=== PATIENT | male | born 1940 | race Caucasian/White ===

== ENCOUNTER 2017-02-24 20:10 | Outpatient (CLI) | payer MEDICARE, OTHER ==
[~2017-02-24 20:10] MED LIST: AGM875T PO; AMPH15CA PO; ASPI-587 PO; AVOD0.5CAP PO; CITA10TA PO; LISI20TA PO; OMEP20CA12 PO; TERA10CA PO
== END 2017-02-25 06:55 | disposition home or self-care (01) ==
LOC: SLEEP 20:10
PROVIDERS: ATTEND Family Medicine
DX: G47.33 Obstructive sleep apnea (adult) (pediatric) (principal)
CPT/HCPCS: 95811

== ENCOUNTER 2017-05-30 07:50 | Emergency (ER) | payer MEDICARE, OTHER ==
[~2017-05-30] VITALS: Ht 167.6 cm; Wt 95.3 kg
--- OUTSIDE RECORDS SUMMARY | 2017-05-30 07:56 | XMS REPORT | Continuity of Care Document ---
Author Author [facility] Organization [facility] Address Unknown Phone Unavailable Allergies Active Description Code Type Severity Reaction Onset Reported/Identified Relationship to Patient Clinical Status Yes No Known Drug Allergies [id number] Drug Allergy Unknown N/A 10/12/2014 Medications There is no data. Problems Date Dx Coded Attending Type Code Diagnosis Diagnosed By 10/12/2014 HECTOR GALLEGO APRN Ot 873.43 OPEN WOUND OF LIP 10/12/2014 HECTOR GALLEGO APRN Ot E000.8 OTHER EXTERNAL CAUSE STATUS 10/12/2014 HECTOR GALLEGO APRN Ot E880.9 FALL ON STAIR/STEP NEC 10/12/2014 HECTRO GALLEGO APRN Ot V06.1 [id number], COMBINED [ 10/18/2014 LANRE LARSEN, RADHA Bravo Ot V58.32 ENCOUNTER FOR REMOVAL OF SUTURES 11/09/2014 HECTOR GALLEGO APRN Ot 873.43 11/09/2014 HECTOR GALLEGO APRN Ot E000.8 11/09/2014 HECTOR GALLEGO APRN Ot E880.9 11/09/2014 HECTOR GALLEGO APRN Ot V06.1 11/13/2014 ISABEL MCCLENDON MD Ot 435.9 11/13/2014 ISABEL MCCLENDON MD Ot 780.2 11/13/2014 ISABEL MCCLENDON MD Ot 784.51 02/20/2017 ISABEL MCCLENDON MD Ot 435.9 TRANS CEREB ISCHEMIA NOS 02/20/2017 ISABEL MCCLENDON MD Ot 780.2 SYNCOPE AND COLLAPSE 02/20/2017 ISABEL MCCLENDON MD Ot 784.51 DYSARTHRIA 02/25/2017 ISABEL MCCLENDON MD Ot G47.33 OBSTRUCTIVE SLEEP APNEA (ADULT) (PEDIATR 03/02/2017 ISABEL MCCLENDON MD Ot G47.33 OBSTRUCTIVE SLEEP APNEA (ADULT) (PEDIATR Procedures There is no data. Results There is no data. Encounters ACCT No. Visit Date/Time Discharge Status Pt. Type Provider Facility Loc./Unit Complaint [id number] 2017 20:10:00 02/25/2017 06:55:00 DIS Outpatient ISABEL MCCLENDON MD [facility] SLEEP G47.33 ALYSSA [id number] 10/21/2014 09:41:00 10/21/2014 23:59:59 CLS Outpatient ISABEL MCCLENDON MD [facility] RAD TIA SYNCOPE DYSARTHRIA [id number] 10/18/2014 10:43:00 10/18/2014 10:51:00 DIS Emergency RADHA DE DIOS MD [facility] ER SUTURE REMOVAL [id number] 10/12/2014 13:11:00 10/12/2014 14:51:00 DIS Emergency HECTOR GALLEGO APRN [facility] ER FALL/FACIAL INJURY
[2017-05-30] MEDS ORDERED: AMOX-358 PO (09:16)
[2017-05-30] MEDS ORDERED: ACHD5005 PO (09:16)
--- NOTE | 2017-05-30 09:20 | ED EENT ---
History of Present Illness General Chief Complaint: Dental Problems/Pain Stated Complaint: INFECTION IN JAW Nursing Triage Note: PT CO OF DENTAL PAIN R JAW AREA STATES SCHEDULED TO HAVE DENTIST APPT NEXT WEEK. PT STATES HAS FEVER AND PAIN History of Present Illness Date Seen by Provider: May 30, 2017 Time Seen by Provider: 09:07 Initial Comments Here with report of swelling to the right side of the face and tooth abscess problem. He is not currently on antibiotics. He has appointment with his dentist next week. Denies fever or chills. Denies breathing problems or vomiting. Timing/Duration: gradual, last week Severity: moderate Location: mouth, facial Prearrival Treatment: over the counter meds Associated Symptoms: No cough, No drooling, facial pain/swelling, No fever, tooth pain Allergies and Home Medications Allergies Coded Allergies: No Known Drug Allergies (Unverified , 10/12/14) Home Medications Amoxicillin/Potassium Clav 1 Each Tablet, 1 EACH PO BID Prescribed by: SAYRA PÉREZ on 05/30/17915 Amphet Asp/Amphet/D-Amphet 15 Mg Cap.sr.24h, 15 MG PO DAILY, (Reported) Aspirin 81 Mg Tablet.dr, 81 MG PO DAILY, (Reported) Citalopram Hydrobromide 10 Mg Tablet, 10 MG PO DAILY, (Reported) Dutasteride 0.5 Mg Capsule, 0.5 MG PO DAILY, (Reported) Hydrocodone Bit/Acetaminophen 1 Tab Tab, 1 EACH PO Q6H PRN for PAIN-MODERATE Prescribed by: SAYRA PÉREZ on 05/30/17915 Lisinopril 20 Mg Tablet, 20 MG PO HS PRN for BLOOD PRESSURE, (Reported) Omeprazole 20 Mg Capsule.dr, 20 MG PO DAILY, (Reported) Terazosin Hcl 10 Mg Capsule, 10 MG PO DAILY, (Reported) Review of Systems Constitutional: see HPI, No chills, No fever Mouth: see HPI Throat: no symptoms reported Respiratory: no symptoms reported Cardiovascular: no symptoms reported Gastrointestinal: no symptoms reported Past Wkrfxqd-Jcskyn-Ahchpq Hx Patient Social History Alcohol Use: Denies Use Recreational Drug Use: No Smoking Status: Never a Smoker Recent Foreign Travel: No Contact w/Someone Who Travel: No Recent Infectious Disease Expo: No Immunizations Up To Date Tetanus Booster (TDap): More than 5yrs Seasonal Allergies Seasonal Allergies: No Surgeries History of Surgeries: Yes Surgeries: Appendectomy Respiratory History of Respiratory Disorde: Yes Respiratory Disorders: Sleep Apnea Cardiovascular History of Cardiac Disorders: Yes Cardiac Disorders: Hypertension Genitourinary History of Genitourinary Disor: Yes Genitourinary Disorders: Benign Prostatic Hyperpl Reviewed Nursing Assessment Reviewed/Agree w Nursing PMH: Yes Family Medical History Significant Family History: No Pertinent Family Hx Physical Exam Vital Signs Vital Signs - First Documented 05/30/17 08:16 Temp 98.2 Pulse 89 Resp 18 B/P (MAP) 135/93 (107) Pulse Ox 95 General Appearance: WD/WN, no apparent distress Nose: normal inspection Mouth/Throat: pharynx normal, maxillary swelling, No tongue swollen, No trismus , No voice changes, other (swelling noted to the right upper jaw posterior and includes the area of the cheek. There is purulent drainage from abscess near number 2 tooth) Neck: full range of motion, supple Cardiovascular: regular rate, rhythm, no murmur Respiratory: lungs clear, normal breath sounds Neurologic/Psychiatric: alert, oriented x 3 Skin: normal color, warm/dry Progress/Results/Core Measures Results/Orders Vital Signs/I&O Vital Sign - Last 12Hours 05/30/17 08:16 Temp 98.2 Pulse 89 Resp 18 B/P (MAP) 135/93 (107) Pulse Ox 95 Blood Pressure Mean: 107 Progress Note : Progress Note Seen and evaluated. Discharged home with return precautions. Patient verbalize understanding instructions and agreement with plan. Departure Impression Impression: Primary Impression: Abscess, dental Disposition: 01 HOME, SELF-CARE Condition: Stable Departure-Patient Inst. Decision time for Depature: 09:19 Referrals: ISABEL MCCLENDON MD (PCP/Family) Primary Care Physician Patient Instructions: Tooth Abscess (DC) Add. Discharge Instructions: All discharge instructions reviewed with patient and/or family. Voiced understanding. Take medications as directed. Follow-up with the dentist next week for recheck and further evaluation as scheduled. Return for worse pain, or swelling, fever , vomiting, weakness, breathing problems or other concerns as needed. You may take Tylenol/acetaminophen 1000 mg every 6 hours as needed for pain but do not take that with the prescribed pain medicine as it also has acetaminophen in it. You may take one or the other every 6 hours but not both. Scripts Hydrocodone Bit/Acetaminophen (Hydrocodone/Acetaminophen 5/325mg Tablet) 1 Tab Tab 1 EACH PO Q6H Y for PAIN-MODERATE, #12 TAB 0 Refills Prov: SAYRA PÉREZ MD 05/30/17 Amoxicillin/Potassium Clav (Augmentin 875-125 Tablet) 1 Each Tablet 1 EACH PO BID, #20 TAB 0 Refills Prov: SAYRA PÉREZ MD 05/30/17 SAYRA PÉREZ MD May 30, 2017 09:20
[2017-05-30 09:26] VITALS: BP 135/93
== END 2017-05-30 09:26 | disposition home or self-care (01) ==
LOC: EDUNIT# 07:50 → ER 07:52
DX: K04.7 Periapical abscess without sinus (principal); G47.30 Sleep apnea, unspecified; I10 Essential (primary) hypertension; Z79.82 Long term (current) use of aspirin; Z90.49 Acquired absence of other specified parts of digestive tract
CPT/HCPCS: 99282

== ENCOUNTER 2018-05-13 11:03 | Emergency (ER) | payer MEDICARE, OTHER ==
[~2018-05-13 11:03] MED LIST changes: +ACHD5005 PO; +AMOX-358 PO
--- OUTSIDE RECORDS SUMMARY | 2018-05-13 11:07 | XMS REPORT | Continuity of Care Document ---
Author Author [facility] Organization [facility] Address Unknown Phone Unavailable Allergies Active Description Code Type Severity Reaction Onset Reported/Identified Relationship to Patient Clinical Status Yes PROTONIX SEVERE OTHER Yes No Known Drug Allergies [id number] Drug Allergy Unknown N/A 10/12/2014 Medications There is no data. Problems Date Dx Coded Attending Type Code Diagnosis Diagnosed By 10/12/2014 HECTOR GALLEGO APRN Ot 873.43 OPEN WOUND OF LIP 10/12/2014 HECTOR GALLEGO APRN Ot E000.8 OTHER EXTERNAL CAUSE STATUS 10/12/2014 HECTOR GALLEGO APRN Ot E880.9 FALL ON STAIR/STEP NEC 10/12/2014 HECTOR GALLEGO APRN Ot V06.1 [id number], COMBINED [ 10/18/2014 LANRE LARSEN, RADHA Bravo Ot V58.32 ENCOUNTER FOR REMOVAL OF SUTURES 11/09/2014 HECTOR GALLEGO APRN Ot 873.43 11/09/2014 HECTOR GALLEGO APRN Ot E000.8 11/09/2014 HECTOR GALLEGO APRN Ot E880.9 11/09/2014 HECTOR GALLEGO APRN Ot V06.1 11/13/2014 HAKAN LARSEN, ISABEL Thakur Ot 435.9 11/13/2014 HAKAN LARSEN, ISABEL Thakur Ot 780.2 11/13/2014 ISABEL MCCLENDON MD Ot 784.51 02/20/2017 HAKAN LARSEN, ISABEL Thakur Ot 435.9 TRANS CEREB ISCHEMIA NOS 02/20/2017 HAKAN LARSEN, ISABEL Thakur Ot 780.2 SYNCOPE AND COLLAPSE 02/20/2017 HAKAN LARSEN, ISABEL Thakur Ot 784.51 DYSARTHRIA 02/25/2017 HAKAN LARSEN, ISABEL Thakur Ot G47.33 OBSTRUCTIVE SLEEP APNEA (ADULT) (PEDIATR 03/02/2017 HAKAN LARSEN, ISABEL Thakur Ot G47.33 OBSTRUCTIVE SLEEP APNEA (ADULT) (PEDIATR 05/30/2017 SAYRA PÉREZ MD Ot G47.30 SLEEP APNEA, UNSPECIFIED 05/30/2017 SAYRA PÉREZ MD Ot I10 ESSENTIAL (PRIMARY) HYPERTENSION 05/30/2017 SAYRA PÉREZ MD Ot K04.7 PERIAPICAL ABSCESS WITHOUT SINUS 05/30/2017 SAYRA PÉREZ MD Ot K08.89 OTHER SPECIFIED DISORDERS OF TEETH AND S 05/30/2017 SAYRA PÉREZ MD Ot Z79.82 GROUP HOME (CURRENT) USE OF ASPIRIN 05/30/2017 SAYRA PÉREZ MD Ot Z90.49 ACQUIRED ABSENCE OF OTHER SPECIFIED PART 05/31/2017 ISABEL MCCLENDON W 401.0 MALIGNANT ESSENTIAL HYPERTENSION 05/31/2017 MCCLENDONISABEL PRICE W I10 ESSENTIAL (PRIMARY) HYPERTENSION 05/31/2017 MCCLENDON, ISABEL W 401.0 MALIGNANT ESSENTIAL HYPERTENSION 05/31/2017 HAKAN ISABEL W I10 ESSENTIAL (PRIMARY) HYPERTENSION 05/31/2017 MCCLENDONKIET PRICEHEL W 401.0 MALIGNANT ESSENTIAL HYPERTENSION 05/31/2017 ISABEL MCCLENDON W I10 ESSENTIAL (PRIMARY) HYPERTENSION 06/04/2017 SAYRA PÉREZ MD Ot G47.30 SLEEP APNEA, UNSPECIFIED 06/04/2017 SAYRA PÉREZ MD Ot I10 ESSENTIAL (PRIMARY) HYPERTENSION 06/04/2017 SAYRA PÉREZ MD Ot K04.7 PERIAPICAL ABSCESS WITHOUT SINUS 06/04/2017 SAYRA PÉREZ MD Ot K08.89 OTHER SPECIFIED DISORDERS OF TEETH AND S 06/04/2017 SAYRA PÉREZ MD Ot Z79.82 TELEPHONE STERILIZER (CURRENT) USE OF ASPIRIN 06/04/2017 SAYRA PÉREZ MD Ot Z90.49 ACQUIRED ABSENCE OF OTHER SPECIFIED PART 01/16/2018 ISABEL MCCLENDON W 401.0 MALIGNANT ESSENTIAL HYPERTENSION 01/16/2018 KIET MCCLENDONHEL W I10 ESSENTIAL (PRIMARY) HYPERTENSION 01/16/2018 MCCLENDON, ISABEL W 401.0 MALIGNANT ESSENTIAL HYPERTENSION 01/16/2018 MCCLENDON, ISABEL W I10 ESSENTIAL (PRIMARY) HYPERTENSION 01/16/2018 MCCLENDON, ISABEL W 401.0 MALIGNANT ESSENTIAL HYPERTENSION 01/16/2018 MCCLENDON, ISABEL W I10 ESSENTIAL (PRIMARY) HYPERTENSION 01/17/2018 ISABEL MCCLENDON W 782.2 LOCALIZED SUPERFICIAL SWELLING, MASS, OR LUMP 01/17/2018 ISABEL MCCLENDON W R22.0 LOCALIZED SWELLING, MASS AND LUMP, HEAD 01/17/2018 ISABEL MCCLENDON W 782.2 LOCALIZED SUPERFICIAL SWELLING, MASS, OR LUMP 01/17/2018 ISABEL MCCLENDON R22.0 LOCALIZED SWELLING, MASS AND LUMP, HEAD Procedures There is no data. Results Test Result Range PSA Yearly Screen - 04/11/16 10:45 PSA TOTAL 2.4 ng/mL 0.0-4.0 Lipid Panel - 05/31/17 11:27 C/HDL 2.6 3.7-6.7 Cholesterol 108 mg/dL 100-240 HDL 42 mg/dL 30-85 LDL-Calculated 58 mg/dL 0-100 Trig 39 mg/dL 35-160 VLDL 8 mg/dL 0-42 BMP - 01/16/18 09:35 Anion Gap 17 6-14 BUN 16 mg/dL 5-25 Calcium 9.1 mg/dL 8.3-10.4 Chloride 102 mmol/L 95-114 CO2 25 mEq/L 22-33 Creat 1.38 mg/dL 0.50-1.50 eGFR 50 mL/min/1.73m2 >59 Glucose 182 mg/dL 70-110 Osmo 292 280-295 Potassium 4.5 mmol/L 3.5-5.3 Sodium 139 mmol/L 134-148 Creatinine - 01/30/18 15:56 Creat 1.24 mg/dL 0.50-1.50 eGFR 57 mL/min/1.73m2 >59 Encounters ACCT No. Visit Date/Time Discharge Status Pt. Type Provider Facility Loc./Unit Complaint [id number] 05/30/2017 07:52:00 05/30/2017 09:26:00 DIS Emergency ELISA LARSEN, SAYRA Jorge [facility] ER INFECTION IN JAW [id number] 2017 20:10:00 02/25/2017 06:55:00 DIS Outpatient ISABEL MCCLENDON MD [facility] SLEEP G47.33 ALYSSA [id number] 10/21/2014 09:41:00 10/21/2014 23:59:59 CLS Outpatient ISABEL MCCLENDON MD [facility] RAD TIA SYNCOPE DYSARTHRIA [id number] 10/18/2014 10:43:00 10/18/2014 10:51:00 DIS Emergency LANRE LARSEN, RADHA Bravo [facility] ER SUTURE REMOVAL [id number] 10/12/2014 13:11:00 10/12/2014 14:51:00 DIS Emergency HECTOR GALLEGO APRN [facility] ER FALL/FACIAL INJURY [id number] 01/16/2018 13:06:00 Document Registration [id number] 01/31/2018 09:08:00 01/31/2018 23:59:00 DIS Outpatient Osvaldo Arceo [id number] 01/30/2018 15:48:00 01/30/2018 23:59:00 DIS Outpatient Osvaldo Arceo [id number] 01/17/2018 13:08:00 01/17/2018 23:59:00 DIS Outpatient ISABEL MCCLENDON [id number] 01/16/2018 13:06:00 01/16/2018 23:59:00 DIS Outpatient ISABEL MCCLENDON [id number] 05/31/2017 12:53:00 05/31/2017 23:59:00 DIS Outpatient ISABEL MCCLENDON [id number] 04/11/2016 11:26:00 04/11/2016 23:59:00 DIS Outpatient ISABEL MCCLENDON
--- NOTE | 2018-05-13 11:40 | NUR ---
ATTEMPTED TO CALL PT BACK TO ROOM, PT NOT IN WAITING ROOM ATT. WILL TRY TO CALL BACK IN A FEW MINUTES.
--- NOTE | 2018-05-13 11:59 | NUR ---
ATTEMPTED TO CALL PT BACK FOR THE SECOND TIME. PT NOT IN LOBBY OR OUTSIDE. PT LWBS.
== END 2018-05-13 11:58 | disposition left against medical advice (07) ==
LOC: EDUNIT# 11:03 → ER 11:03
DX: R30.0 Dysuria (principal)

== ENCOUNTER 2019-01-12 05:03 | Emergency (ER) | payer MEDICARE, OTHER ==
[~2019-01-12] VITALS: Ht 168 cm; Wt 94.1 kg
[2019-01-12 05:33] LABS: BILIRUBIN,URINE NEGATIVE (NEGATIVE); CLARITY,URINE CLEAR; COLOR,URINE YELLOW; GLUCOSE, URINE (UA) NEGATIVE (NEGATIVE); KETONES,URINE NEGATIVE (NEGATIVE); LEUKOCYTE ESTERASE ,URINE NEGATIVE (NEGATIVE); NITRITE,URINE NEGATIVE (NEGATIVE); PH,URINE 5 (5-9); PROTEIN,URINE NEGATIVE (NEGATIVE); UROBILINOGEN,URINE NORMAL (NORMAL)
[2019-01-12] MEDS ORDERED: SULF1TAB35 PO (05:44)
[2019-01-12] MEDS ORDERED: TRIM/SULFAMETH 160/800 (SEPTRA DS) TAB PO ONE (05:45)
--- NOTE | 2019-01-12 05:45 | ED GU-Male ---
General Chief Complaint: - Urinary Stated Complaint: [facility] Nursing Triage Note: URINARY RETENTION Allergies and Home Medications Allergies Coded Allergies: No Known Drug Allergies (Unverified , 10/12/14) Home Medications Amoxicillin/Potassium Clav 1 Each Tablet, 1 EACH PO BID Prescribed by: SAYRA PRÉEZ on 05/30/17915 Amphet Asp/Amphet/D-Amphet 15 Mg Cap.sr.24h, 15 MG PO DAILY, (Reported) Aspirin 81 Mg Tablet.dr, 81 MG PO DAILY, (Reported) Citalopram Hydrobromide 10 Mg Tablet, 10 MG PO DAILY, (Reported) Dutasteride 0.5 Mg Capsule, 0.5 MG PO DAILY, (Reported) Hydrocodone Bit/Acetaminophen 1 Tab Tab, 1 EACH PO Q6H PRN for PAIN-MODERATE Prescribed by: SAYRA PÉREZ on 05/30/17915 Lisinopril 20 Mg Tablet, 20 MG PO HS PRN for BLOOD PRESSURE, (Reported) Omeprazole 20 Mg Capsule.dr, 20 MG PO DAILY, (Reported) Terazosin Hcl 10 Mg Capsule, 10 MG PO DAILY, (Reported) Past Zezxrjv-Mjpcxq-Iadkgl Hx Patient Social History Alcohol Use: Denies Use Recreational Drug Use: No Smoking Status: Never a Smoker 2nd Hand Smoke Exposure: No Recent Foreign Travel: No Contact w/Someone Who Travel: No Recent Infectious Disease Expo: No Recent Hopitalizations: No Physical Abuse: No Sexual Abuse: No Mistreated: No Fear: No Immunizations Up To Date Tetanus Booster (TDap): Unknown Seasonal Allergies Seasonal Allergies: No Past Medical History Surgeries: No Appendectomy Respiratory: No Sleep Apnea Cardiac: Yes Hypertension Neurological: No Genitourinary: Yes (URINARY RETENTION) Prostate Problems Gastrointestinal: Yes Gastroesophageal Reflux Musculoskeletal: No Endocrine: No HEENT: No Cancer: No Psychosocial: No Integumentary: No Blood Disorders: No Family Medical History No Pertinent Family Hx Physical Exam Vital Signs Vital Signs - First Documented 01/12/19 05:07 Temp 36.1 Pulse 112 Resp 18 B/P (MAP) 136/92 (107) Pulse Ox 96 O2 Delivery Room Air Capillary Refill : Less Than 3 Seconds Height, Weight, BMI Height: 5'6.00" Weight: 210lbs. oz. 95.851604pw; 33.00 BMI Method:Stated Progress/Results/Core Measures Suspected Sepsis Recent Fever Within 48 Hours: No Infection Criteria Present: None New/Unexplained Altered Menta: No Sepsis Screen: No Definite Risk SIRS Temperature: Pulse: 112 Respiratory Rate: 18 Blood Pressure 136 /92 Mean: 107 Results/Orders Lab Results Laboratory Tests Test 01/12/19 05:20 Range/Units My Orders Orders - JOSÉ ANTONIO GREENE DO Catheter(Urinary) Insert & Ass 03,15 (01/12/19 05:14) Ua Culture If Indicated (01/12/19 05:14) Sulfamethoxazole/Trimet Ds Tab (Bactrim (01/12/19 05:45) Vital Signs/I&O 01/12/19 05:07 Temp 36.1 Pulse 112 Resp 18 B/P (MAP) 136/92 (107) Pulse Ox 96 O2 Delivery Room Air Capillary Refill : Less Than 3 Seconds Blood Pressure Mean: 107 Progress Note : Progress Note ENRIQUEZ CATHETER PLACED, WITH IMMEDIATE RETURN OF 500 ML CLEAR URINE Departure Impression Primary Impression: Urinary retention Additional Impression: History of BPH Disposition: 01 HOME, SELF-CARE Condition: Improved Departure-Patient Inst. Referrals: ISABEL MCCLENDON MD (PCP/Family) Primary Care Physician Patient Instructions: Benign Prostatic Hyperplasia (Enlarged Prostate) (DC), Enriquez Catheter, Male, Urinary Retention (DC) Add. Discharge Instructions: CONTINUE YOUR REGULAR MEDICATIONS PRESCRIBED FOLLOW UP WITH YOUR UROLOGIST THIS WEEK FOR FURTHER CARE All discharge instructions reviewed with patient and/or family. Voiced understanding. Scripts Sulfamethoxazole/Trimethoprim (Bactrim Ds Tablet) 1 Each Tablet 1 EACH PO BID, #20 TAB Prov: JOSÉ ANTONIO GREENE DO 01/12/19 JOSÉ ANTONIO GREENE DO Jan 12, 2019 05:45
[2019-01-12 05:54] VITALS: BP 136/92
[2019-01-12 05:55] LABS: BACTERIA,URINE TRACE /HPF; SQUAMOUS EPITHELIAL CELL,UR RARE /HPF
== END 2019-01-12 05:51 | disposition home or self-care (01) ==
LOC: EDUNIT# 05:03 → ER 05:05
DX: R33.9 Retention of urine, unspecified (principal); I10 Essential (primary) hypertension; K21.9 Gastro-esophageal reflux disease without esophagitis; Z87.438 Personal history of other diseases of male genital organs; Z79.82 Long term (current) use of aspirin; Z90.49 Acquired absence of other specified parts of digestive tract
CPT/HCPCS: 51702; 81000

== ENCOUNTER 2019-04-10 11:14 | Outpatient (RCR) | payer MEDICARE, OTHER ==
[~2019-04-10 11:14] MED LIST changes: +SULF1TAB35 PO
== END 2019-04-10 11:58 | disposition home or self-care (01) ==
PROVIDERS: ATTEND Student in an Organized Health Care Education/Training Program
DX: R51 Headache (principal); R42 Dizziness and giddiness; I10 Essential (primary) hypertension; K21.9 Gastro-esophageal reflux disease without esophagitis

== ENCOUNTER → 2019-05-31 | Emergency (ER) | payer MEDICARE, OTHER ==
[~2019-05-31] VITALS: Ht 167.7 cm; Wt 93.4 kg
[~2019-05-31] MED LIST changes: +DOXY100T2 PO; +KETOROLAC 30 MG/ML VIAL IVP STA; +NS IV 500 ML 500 ML IV ONE; +ONDA4TAB11 PO; +ONDANSETRON 4 MG/2 ML (SDV) Z0FRAN IVP ONE; +TRM50T PO
[2019-05-31 09:52] VITALS: BP 145/84
--- NOTE | 2019-05-31 10:19 | ED GU-Male ---
General Chief Complaint: Male Reproductive Stated Complaint: TESTICLE PAIN/HAD PROSTATE SURGERY IN APR Nursing Triage Note: PATIENT REPORTS HAVING NORMAL URINATION ET NO PROBLEMS AT 0430. AWOKE AT 0730 TO PAIN IN RIGHT TESTICLE AND "SHAKING". PATIENT DENIES ANY SWELLING TO TESTICLES. PATIENT REPORTS HAVING PROSTATE SURGERY "SOMETIME IN APRIL." History of Present Illness Date Seen by Provider: May 31, 2019 Time Seen by Provider: 10:19 Initial Comments 79-year-old male presents with right testicle pain. Patient reports that around 4:30 get up to urinate and then about 7:30 awoke to pain in the right testicle" shaking" patient denies any swelling to the testicle. Patient's testicle is very tender to touch. Patient had a prostate surgery [facility] in April. Patient denies any fevers chills nausea or vomiting. He does not have any dysuria. Allergies and Home Medications Allergies Coded Allergies: No Known Drug Allergies (Unverified , 10/12/14) Home Medications Amoxicillin/Potassium Clav 1 Each Tablet, 1 EACH PO BID Prescribed by: SAYRA PÉREZ on 05/30/17915 Amphet Asp/Amphet/D-Amphet 15 Mg Cap.sr.24h, 15 MG PO DAILY, (Reported) Aspirin 81 Mg Tablet.dr, 81 MG PO DAILY, (Reported) Citalopram Hydrobromide 10 Mg Tablet, 10 MG PO DAILY, (Reported) Dutasteride 0.5 Mg Capsule, 0.5 MG PO DAILY, (Reported) Hydrocodone Bit/Acetaminophen 1 Tab Tab, 1 EACH PO Q6H PRN for PAIN-MODERATE Prescribed by: SAYRA PÉREZ on 05/30/17915 Lisinopril 20 Mg Tablet, 20 MG PO HS PRN for BLOOD PRESSURE, (Reported) Omeprazole 20 Mg Capsule.dr, 20 MG PO DAILY, (Reported) Sulfamethoxazole/Trimethoprim 1 Each Tablet, 1 EACH PO BID Prescribed by: JOSÉ ANTONIO GREENE on 01/12/19 0544 Terazosin Hcl 10 Mg Capsule, 10 MG PO DAILY, (Reported) Patient Home Medication List Home Medication List Reviewed: Yes Review of Systems Review of Systems Constitutional: chills; No fever EENTM: no symptoms reported Respiratory: no symptoms reported Gastrointestinal: No abdominal pain; nausea; No vomiting Genitourinary: see HPI Musculoskeletal: no symptoms reported Skin: no symptoms reported Past Stgngnq-Kdtupw-Poyrdc Hx Past Med/Social Hx: Reviewed Nursing Past Med/Soc Hx Patient Social History Alcohol Use: Denies Use Recreational Drug Use: No 2nd Hand Smoke Exposure: No Recent Foreign Travel: No Contact w/Someone Who Travel: No Recent Infectious Disease Expo: No Recent Hopitalizations: No Immunizations Up To Date Tetanus Booster (TDap): Unknown Date of Influenza Vaccine: Dec 31, 2018 Seasonal Allergies Seasonal Allergies: No Past Medical History Surgeries: Yes Appendectomy, Prostatectomy Respiratory: Yes Sleep Apnea Cardiac: Yes Hypertension Neurological: Yes Headaches /Migraines Genitourinary: Yes (URINARY RETENTION) Prostate Problems Gastrointestinal: Yes Gastroesophageal Reflux Musculoskeletal: No Endocrine: No HEENT: No Cancer: No Psychosocial: No Integumentary: No Blood Disorders: No Family Medical History No Pertinent Family Hx Physical Exam Vital Signs Vital Signs - First Documented 05/31/19 09:52 Temp 38.1 Pulse 98 Resp 20 B/P (MAP) 145/84 (104) Pulse Ox 98 O2 Delivery Room Air Capillary Refill : Less Than 3 Seconds Height, Weight, BMI Height: 5'6.00" Weight: 210lbs. oz. 95.277441lr; 33.00 BMI Method:Stated General Appearance: WD/WN Cardiovascular: normal peripheral pulses, regular rate, rhythm Respiratory: chest non-tender, lungs clear Gastrointestinal: non tender, soft Male: testicular tenderness (right testicle, patient however with bilateral cremaster reflexes intact. 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, no motor/sensory deficits, oriented x 3 Skin: normal color, warm/dry Progress/Results/Core Measures Suspected Sepsis Recent Fever Within 48 Hours: No Infection Criteria Present: None New/Unexplained Altered Menta: No Sepsis Screen: No Definite Risk SIRS Temperature: Pulse: 98 Respiratory Rate: 20 Blood Pressure 145 /84 Mean: 104 Results/Orders Lab Results Laboratory Tests Test 05/31/19 10:25 Range/Units Urine Color YELLOW Urine Clarity CLOUDY Urine pH 5.5 5-9 Urine Specific [place] 1.025 H 1.016-1.022 Urine Protein TRACE H NEGATIVE Urine Glucose (UA) NEGATIVE NEGATIVE Urine Ketones NEGATIVE NEGATIVE Urine Nitrite NEGATIVE NEGATIVE Urine Bilirubin NEGATIVE NEGATIVE Urine Urobilinogen 0.2 < = 1.0 MG/DL Urine Leukocyte Esterase 2+ H NEGATIVE Urine RBC (Auto) 1+ H NEGATIVE Urine RBC RARE /HPF Urine WBC >100 H /HPF Urine Crystals NONE /LPF Urine Bacteria MODERATE H /HPF Urine Casts NONE /LPF Urine Mucus MODERATE H /LPF Urine Culture Indicated YES My Orders Orders - RUSTY GONZALEZ DO Ua Culture If Indicated (05/31/19 10:19) Ed Iv/Invasive Line Start (05/31/19 10:47) Ns Iv 500 Ml (Sodium Chloride 0.9%) (05/31/19 10:47) Ketorolac Injection (Toradol Injection) (05/31/19 10:47) Ondansetron Injection (Zofran Injectio (05/31/19 11:00) Urine Culture (05/31/19 10:25) Ct Abd/Pelvis Wo(Kidney Stone) (05/31/19 11:34) Medications Given in ED Current Medications Medications Dose Ordered Sig/Francesco Route Start Time Stop Time Status Last Admin Dose Admin Ondansetron HCl 4 mg ONCE ONCE IVP 05/31/19 11:00 05/31/19 11:01 DC 05/31/19 11:14 4 MG Sodium Chloride 500 ml @ 0 mls/hr Q0M ONCE IV 05/31/19 10:47 05/31/19 10:49 DC 05/31/19 11:15 500 MLS/HR Vital Signs/I&O 05/31/19 09:52 Temp 38.1 Pulse 98 Resp 20 B/P (MAP) 145/84 (104) Pulse Ox 98 O2 Delivery Room Air Capillary Refill : Less Than 3 Seconds Blood Pressure Mean: 104 Progress Note : Time: 12:35 Progress Note A shunt with a urinary tract infection/likely prostatitis/epididymitis this. I will start him on doxycycline. Leary nausea medications and pain medication. Patient should call his urologist on Sunday to review his workup to see if he needs to be seen. Patient be discharged home in stable condition. Diagnostic Imaging Diagonstic Imaging: CT Comments IMPRESSION: 1: There is no CT evidence of acute abdominopelvic process. There is no urinary tract stone. 2: There is marked enlargement of the prostate gland with exophytic protrusion into the base of bladder. The bladder is fluid distended with mild bowel wall thickening. Component of bladder outlet obstruction with bladder changes may be considered. There is no hydronephrosis. 3: There is a small to moderate amount of stool seen from the rectum to the descending colon. 4: The remainder of this exam shows no other significant abnormality Departure Impression Primary Impression: Orchitis and epididymitis Additional Impression: Prostatitis Qualified Codes: N41.9 - Inflammatory disease of prostate, unspecified Disposition: 01 HOME, SELF-CARE Condition: Stable Departure-Patient Inst. Referrals: ISABEL MCCLENDON MD (PCP/Family) Primary Care Physician Patient Instructions: Epididymitis (DC), Prostatitis Add. Discharge Instructions: Emergency department focuses on treating and ruling out life-threatening diseases. Whenever possible, a diagnosis is given. However, most patients are given an impression based on their history, physical exam, and workup during your brief time in the ER. Information about probable diagnosis and other educational material has been provided. Please take the time to read and understand this information. It is very important that you follow up with a physician as discussed during the visit today. Failure to adhere to your follow-up instructions may lead to severe disability, injury, or so please make sure to keep your appointments or obtain one as requested. Please keep in mind the emergency department is not designed to your primary care or "family doctor" and nonurgent issues are best evaluated by an outpatient physician All discharge instructions reviewed with patient and/or family. Voiced understanding. Scripts Ondansetron (Ondansetron Odt) 4 Mg Tab.rapdis 4 MG PO Q6H PRN for NAUSEA/VOMITING, #20 TAB Prov: RUSTY GONZALEZ DO 05/31/19 Doxycycline Hyclate (Doxycycline Hyclate) 100 Mg Tablet 100 MG PO BID for 10 Days, #20 TAB 0 Refills Prov: RUSTY GONZALEZ DO 05/31/19 RUSTY GONZALEZ DO May 31, 2019 10:19
[2019-05-31 10:55] LABS: BILIRUBIN,URINE NEGATIVE (NEGATIVE); CLARITY,URINE CLOUDY; COLOR,URINE YELLOW; GLUCOSE, URINE (UA) NEGATIVE (NEGATIVE); KETONES,URINE NEGATIVE (NEGATIVE); LEUKOCYTE ESTERASE ,URINE 2+ (NEGATIVE); NITRITE,URINE NEGATIVE (NEGATIVE); PH,URINE 5.5 (5-9); PROTEIN,URINE TRACE (NEGATIVE)
[2019-05-31 11:30] LABS: BACTERIA,URINE MODERATE /HPF; RBC,URINE RARE /HPF; WBC,URINE >100 /HPF
--- NOTE | 2019-05-31 12:28 | Diagnostic Imaging Report ---
Clinical indication: Patient woke up at 0730 hours with pain in the right testicle and shaking. Patient denies any swelling in the testicle. Patient had prostate surgery sometime in April. EXAM: Axial CT scan of the abdomen and pelvis performed without IV or enteric contrast. Coronal and sagittal reformatted images were created. Auto Exposure Controls were utilized during the CT exam to meet ALARA standards for radiation dose reduction. COMPARISON: None. FINDINGS: There is mild bibasilar atelectasis. There are degenerative spurs involving the lower thoracic and lumbar spine. There is lower lumbar spine facet arthropathy. The liver, spleen, gallbladder, pancreas, and adrenal glands are unremarkable. Mildly prominent bilateral extrarenal pelvis are seen with no hydronephrosis. Both kidneys show no stones or masses visualized. The bladder is fluid distended. The prostate gland is enlarged with exophytic protrusion into the base of the bladder. Prostate gland measures grossly 6.8 cm x 5.5 cm x 8.8 cm (AP x Trans x CC). There is minimal bladder wall thickening noted. There is no adjacent fat stranding. There is no intra-abdominal free air or free fluid. There is no intestinal obstruction. There no intraabdominal free air or free fluid. There is a diverticulum involving the right colon with no CT evidence of diverticulitis. There is no lymphadenopathy. The small bowel is predominantly decompressed. There is small to moderate amount of stool seen from the rectum to the proximal descending colon. The extra-abdominal and extra-pelvic soft tissue structures are unremarkable. IMPRESSION: 1: There is no CT evidence of acute abdominopelvic process. There is no urinary tract stone. 2: There is marked enlargement of the prostate gland with exophytic protrusion into the base of bladder. The bladder is fluid distended with mild bowel wall thickening. Component of bladder outlet obstruction with bladder changes may be considered. There is no hydronephrosis. 3: There is a small to moderate amount of stool seen from the rectum to the descending colon. 4: The remainder of this exam shows no other significant abnormality. Dictated by: Dictated on workstation # [id number]
--- NOTE | 2019-06-01 09:02 | NUR ---
MICRO REPORT GIVEN TO DR GONZALEZ FOR REVIEW.
== END ==
LOC: EDUNIT# 09:18 → ER 09:20
DX: N45.3 Epididymo-orchitis (principal); N41.9 Inflammatory disease of prostate, unspecified; I10 Essential (primary) hypertension; K21.9 Gastro-esophageal reflux disease without esophagitis; Z79.82 Long term (current) use of aspirin
CPT/HCPCS: 74176; 81000; 87077; 87088; 87186; 96361; 96374; 96375; 99282

== ENCOUNTER 2020-01-24 14:45 | Emergency (ER) | payer MEDICARE, OTHER ==
[~2020-01-24] VITALS: Ht 167.7 cm; Wt 95.2 kg
[~2020-01-24 14:45] MED LIST changes: -KETOROLAC 30 MG/ML VIAL IVP STA; -NS IV 500 ML 500 ML IV ONE; -ONDANSETRON 4 MG/2 ML (SDV) Z0FRAN IVP ONE
[2020-01-24 15:05] LABS: BASOPHILS % (AUTO) 1 % (0-10); EOSINOPHILS # (AUTO) 0.1 10^3/uL (0.0-0.3); EOSINOPHILS % (AUTO) 2 % (0-10); HEMATOCRIT 43 % (40-54); HEMOGLOBIN 14.1 g/dL (13.3-17.7); LYMPHOCYTES # (AUTO) 1.3 10^3/uL (1.0-4.0); LYMPHOCYTES % (AUTO) 26 % (12-44); MEAN CORPUSCULAR HEMOGLOBIN 30 pg (25-34); MEAN CORPUSCULAR HGB CONC 33 g/dL (32-36); MEAN CORPUSCULAR VOLUME 90 fL (80-99); MONOCYTES # (AUTO) 0.5 10^3/uL (0.0-1.0); MONOCYTES % (AUTO) 10 % (0-12); NEUTROPHILS % (AUTO) 61 % (42-75); PLATELET COUNT 158 10^3/uL (130-400); WHITE BLOOD COUNT 4.9 10^3/uL (4.3-11.0)
--- NOTE | 2020-01-24 15:06 | ED General ---
General Stated Complaint: DIZZY Source of Information: Patient Exam Limitations: No Limitations History of Present Illness Date Seen by Provider: Jan 24, 2020 Time Seen by Provider: 14:58 Initial Comments This is a 79-year-old male who presents to the ER via [facility] after experiencing an episode of vertigo, nausea, and presyncope approximately 45 min to arrival. States he was sitting in his chair when he bent over and became dizzy and nauseous stating he almost passed out. He proceeded to sit up in his chair to reduce the symptoms, but they persisted for approximately 20-30 minutes. His symptoms resolved prior to ED arrival. Denies fever, chest pain, loss of conscious, changes in vision, motor weakness, slurred speech, cough, shortness of breath, abdominal pain, diarrhea, ill contacts or COVID exposure. Allergies and Home Medications Allergies Coded Allergies: No Known Drug Allergies (Unverified , 10/12/14) Home Medications Amoxicillin/Potassium Clav 1 Each Tablet, 1 EACH PO BID Prescribed by: SAYRA PÉREZ on 05/30/17915 Amphet Asp/Amphet/D-Amphet 15 Mg Cap.sr.24h, 15 MG PO DAILY, (Reported) Aspirin 81 Mg Tablet.dr, 81 MG PO DAILY, (Reported) Citalopram Hydrobromide 10 Mg Tablet, 10 MG PO DAILY, (Reported) Doxycycline Hyclate 100 Mg Tablet, 100 MG PO BID Prescribed by: RUSTY GONZALEZ on 05/31/191237 Dutasteride 0.5 Mg Capsule, 0.5 MG PO DAILY, (Reported) Hydrocodone Bit/Acetaminophen 1 Tab Tab, 1 EACH PO Q6H PRN for PAIN-MODERATE Prescribed by: SAYRA PÉREZ on 05/30/17915 Lisinopril 20 Mg Tablet, 20 MG PO HS PRN for BLOOD PRESSURE, (Reported) Omeprazole 20 Mg Capsule.dr, 20 MG PO DAILY, (Reported) Ondansetron 4 Mg Tab.rapdis, 4 MG PO Q6H PRN for NAUSEA/VOMITING Prescribed by: RUSTY GONZALEZ on 05/31/19 123 Sulfamethoxazole/Trimethoprim 1 Each Tablet, 1 EACH PO BID Prescribed by: JOSÉ ANTONIO GREENE on 01/12/19 0544 Terazosin Hcl 10 Mg Capsule, 10 MG PO DAILY, (Reported) Tramadol HCl 50 Mg Tablet, 50 MG PO Q8H PRN for PAIN Prescribed by: RUSTY GONZALEZ on 05/31/19 1240 Patient Home Medication List Home Medication List Reviewed: Yes Review of Systems Review of Systems Constitutional: No chills; dizziness; No fever EENTM: No hearing loss, No blurred vision, No double vision, No vision loss, No throat pain Respiratory: no symptoms reported Cardiovascular: no symptoms reported Gastrointestinal: No abdominal pain; nausea; No vomiting Genitourinary: no symptoms reported Musculoskeletal: no symptoms reported Skin: no symptoms reported Psychiatric/Neurological: No Symptoms Reported Hematologic/Lymphatic: No Symptoms Reported Immunological/Allergic: no symptoms reported Past Hqanmyq-Cvdceo-Oeduxd Hx Patient Social History 2nd Hand Smoke Exposure: No Recent Hopitalizations: No Immunizations Up To Date Tetanus Booster (TDap): Unknown Date of Influenza Vaccine: Dec 31, 2018 Seasonal Allergies Seasonal Allergies: No Past Medical History Surgeries: Yes Appendectomy, Prostatectomy Respiratory: Yes Sleep Apnea Cardiac: Yes Hypertension Neurological: Yes Headaches /Migraines Genitourinary: Yes (URINARY RETENTION) Prostate Problems Gastrointestinal: Yes Gastroesophageal Reflux Musculoskeletal: No Endocrine: No HEENT: No Cancer: No Psychosocial: No Integumentary: No Blood Disorders: No Family Medical History No Pertinent Family Hx Physical Exam Vital Signs Vital Signs - First Documented 01/24/20 01/24/20 14:50 20:47 Temp 36.6 Pulse 65 Resp 20 B/P (MAP) 189/108 (135) Pulse Ox 97 O2 Delivery Room Air Capillary Refill : Height, Weight, BMI Height: 5'6.00" Weight: 210lbs. oz. 95.679870yu; 33.00 BMI Method:Stated General Appearance: No Apparent Distress, WD/WN HEENT: PERRL/EOMI, Normal ENT Inspection, Pharynx Normal Neck: Full Range of Motion, Normal Inspection, Non Tender Respiratory: Chest Non Tender, Lungs Clear, Normal Breath Sounds, No Accessory Muscle Use Cardiovascular: Regular Rate, Rhythm, No Edema, Normal Peripheral Pulses Gastrointestinal: Normal Bowel Sounds, Non Tender, Soft Back: Normal Inspection Extremity: Normal Capillary Refill, Normal Inspection, Normal Range of Motion, Non Tender Neurologic/Psychiatric: Alert, Oriented x3, No Motor/Sensory Deficits, Normal Mood/Affect, 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; No Facial Droop, No Motor Weakness Skin: Normal Color, Warm/Dry Progress/Results/Core Measures Suspected Sepsis SIRS Temperature: Pulse: Respiratory Rate: Laboratory Tests 01/24/20 14:56: White Blood Count 4.9 Blood Pressure / Mean: Laboratory Tests 01/24/20 14:56: Creatinine 1.44H, INR Comment 1.0, Platelet Count 158, Total Bilirubin 0.8 Results/Orders Lab Results Laboratory Tests Test 01/24/20 14:56 01/24/20 19:57 Range/Units White Blood Count 4.9 4.3-11.0 10^3/uL Red Blood Count 4.77 4.30-5.52 10^6/uL Hemoglobin 14.1 13.3-17.7 g/dL Hematocrit 43 40-54 % Mean Corpuscular Volume 90 80-99 fL Mean Corpuscular Hemoglobin 30 25-34 pg Mean Corpuscular Hemoglobin Concent 33 32-36 g/dL Red Cell Distribution Width 12.9 10.0-14.5 % Platelet Count 158 130-400 10^3/uL Mean Platelet Volume 10.0 9.0-12.2 fL Immature Granulocyte % (Auto) 0 % Neutrophils (%) (Auto) 61 42-75 % Lymphocytes (%) (Auto) 26 12-44 % Monocytes (%) (Auto) 10 0-12 % Eosinophils (%) (Auto) 2 0-10 % Basophils (%) (Auto) 1 0-10 % Neutrophils # (Auto) 3.0 1.8-7.8 10^3/uL Lymphocytes # (Auto) 1.3 1.0-4.0 10^3/uL Monocytes # (Auto) 0.5 0.0-1.0 10^3/uL Eosinophils # (Auto) 0.1 0.0-0.3 10^3/uL Basophils # (Auto) 0.0 0.0-0.1 10^3/uL Immature Granulocyte # (Auto) 0.0 0.0-0.1 10^3/uL Prothrombin Time 14.0 12.2-14.7 SEC INR Comment 1.0 0.8-1.4 Activated Partial Thromboplast Time 28 24-35 SEC Sodium Level 140 135-145 MMOL/L Potassium Level 3.6 3.6-5.0 MMOL/L Chloride Level 103 98-107 MMOL/L Carbon Dioxide Level 28 21-32 MMOL/L Anion Gap 9 5-14 MMOL/L Blood Urea Nitrogen 14 7-18 MG/DL Creatinine 1.44 H 0.60-1.30 MG/DL Estimat Glomerular Filtration Rate 47 BUN/Creatinine Ratio 10 Glucose Level 125 H 70-105 MG/DL Calcium Level 8.8 8.5-10.1 MG/DL Corrected Calcium 8.6 8.5-10.1 MG/DL Magnesium Level 2.0 1.6-2.4 MG/DL Total Bilirubin 0.8 0.1-1.0 MG/DL Aspartate Amino Transf (AST/SGOT) 15 5-34 U/L Alanine Aminotransferase (ALT/SGPT) 15 0-55 U/L Alkaline Phosphatase 47 40-136 U/L Myoglobin 79.0 10.0-92.0 NG/ML Troponin I < 0.028 <0.028 NG/ML Total Protein 7.4 6.4-8.2 GM/DL Albumin 4.3 3.2-4.5 GM/DL Urine Color YELLOW Urine Clarity SL CLOUDY Urine pH 7.0 5-9 Urine Specific [place] 1.010 L 1.016-1.022 Urine Protein NEGATIVE NEGATIVE Urine Glucose (UA) NEGATIVE NEGATIVE Urine Ketones NEGATIVE NEGATIVE Urine Nitrite NEGATIVE NEGATIVE Urine Bilirubin NEGATIVE NEGATIVE Urine Urobilinogen 0.2 < = 1.0 MG/DL Urine Leukocyte Esterase NEGATIVE NEGATIVE Urine RBC (Auto) TRACE-I NEGATIVE Urine RBC 0-2 /HPF Urine WBC 0-2 /HPF Urine Squamous Epithelial Cells RARE /HPF Urine Crystals NONE /LPF Urine Bacteria TRACE /HPF Urine Casts NONE /LPF Urine Mucus NEGATIVE /LPF Urine Culture Indicated NO My Orders Orders - CESAR ORTIZ INTRANET DEVELOPER Cbc With Automated Diff (01/24/20 14:57) Magnesium (01/24/20 14:57) Chest 1 View, Ap/Pa Only (01/24/20 14:57) Ekg Tracing (01/24/20 14:57) Comprehensive Metabolic Panel (01/24/20 14:57) Myoglobin Serum (01/24/20 14:57) Protime With Inr (01/24/20 14:57) Partial Thromboplastin Time (01/24/20 14:57) O2 (01/24/20 14:57) Monitor-Rhythm Ecg Trace Only (01/24/20 14:57) Ed Iv/Invasive Line Start (01/24/20 14:57) Troponin I (01/24/20 14:57) Ns Iv 1000 Ml (Sodium Chloride 0.9%) (01/24/20 18:08) Ct Chest Wo (01/24/20 18:08) Ua Culture If Indicated (01/24/20 18:21) Vital Signs/I&O 01/25/20 00:00 Intake Total 1000 ml Balance 1000 ml Capillary Refill : Progress Note : Progress Note Reports symptoms resolved prior to arrival. Notes history of HTN and states he takes his antihypertensive medication PRN if his SBP is >140. Has not taken any today. Will initiate cardiac workup. No focal or gross neurological deficits appreciated on exam. Cardiac workup unremarkable. However there was an incidental finding of left upper pulmonary nodule. Radiologist recommended CT chest follow up. On CT chest a nodule centrally in the left upper lobe measuring up to 2.1 cm was noted. There are also a couple additional 0.4 cm indeterminate nodules in the left upper lobe. No lymphadenopathy and findings are suspicious for a neoplastic process. I discussed the findings with him and recommended he follow up with Dr. Odonnell on Sunday to set up further evaluation of these nodules. He verbalized understanding and agreed with plan. While updating his spouse, she reports patient has been complaining of left breast pain for several months. I discussed this with him and he states he had an ultrasound of his left breast which did not reveal any concerning findings. I inspected his breast bilaterally which did not reveal any abnormalities in color or size. His nipples did not have any retraction, lesions/ulcerations, redness, or discharge. I was able to palpate apx. 2cm hard round nodule in his left breast, just distal to his nipple. Reported pain with palpation. I recommended he follow up with Dr. Odonnell in the morning regarding these findings. He was instructed to return to ED if he experienced any new or worsening symptoms. He is agreeable with POC. Diagnostic Imaging Diagonstic Imaging: Xray Plain Films/CT/US/NM/MRI: chest Comments NAME: ELOY HURD [facility] REC#: [id number] PT STATUS: REG ER : 1940 PHYSICIAN: CESAR ORTIZ INTRANET DEVELOPER ADMIT DATE: 01/24/20/ER Signed Date of Exam:01/24/20 CHEST 1 VIEW, AP/PA ONLY INDICATION: Dizziness. COMPARISON: Prior study from 10/12/2014. FINDINGS: Lungs demonstrate no focal infiltrate or consolidation. There is no effusion. There is no pneumothorax. There is mild enlargement of the cardiac silhouette. The central pulmonary vascularity appears appropriate without evidence of current failure. There is an ill-defined nodular density projecting within the left lung. This does not appear present on the prior examination and a developing pulmonary nodule or mass could not be excluded. There is no acute or suspicious osseous abnormality. IMPRESSION: 1. No radiographic evidence of an acute cardiopulmonary process. 2. Ill-defined nodular density projecting over the left midlung. This is new from prior examination. A pulmonary nodule or developing mass cannot be excluded. Consider follow-up with chest CT. Dictated by: Dictated on workstation # [id number] Dict: 01/24/20 1605 Trans: 01/24/20 1635 [facility] [id number] Interpreted by: BELINDA GRACIA MD Electronically signed by: BELINDA GRACIA MD 01/24/20 1635 Diagonstic Imaging: CT Plain Films/CT/US/NM/MRI: chest Comments NAME: ELOY HURD [facility] REC#: [id number] PT STATUS: DEP ER : 1940 PHYSICIAN: CESAR ORTIZ APRN ADMIT DATE: 01/24/20/ER Signed Date of Exam:01/24/20 CT CHEST WO PROCEDURE: CT chest without contrast. TECHNIQUE: Multiple contiguous axial images were obtained through the chest without the use of intravenous contrast. Auto Exposure Controls were utilized during the CT exam to meet ALARA standards for radiation dose reduction. INDICATION: Pulmonary nodule on chest radiograph. COMPARISON: Chest radiograph 01/24/2020. FINDINGS: Mixed solid and groundglass pulmonary nodules centrally in the left upper lobe measuring up to 2.1 cm. Smaller pulmonary nodule in the left upper lobe measures up to 0.47 cm anteriorly and 0.4 cm superiorly. The right lung is clear. No pleural effusion or pneumothorax. No mediastinal, hilar or axillary lymphadenopathy. Cardiomegaly. Normal caliber thoracic aorta and central pulmonary arteries. Mild atherosclerotic calcifications in the coronary arteries. The visualized upper abdominal contents are unremarkable. Age-appropriate changes in the visualized spine. No acute osseous finding. IMPRESSION: Mixed solid and groundglass nodule centrally in the left upper lobe measures up to 2.1 cm. There are also a couple additional 0.4 cm indeterminate nodules in the left upper lobe. No lymphadenopathy. Findings are suspicious for a neoplastic process. Recommend nuclear medicine FDG PET/CT versus CT-guided biopsy for further evaluation. Alternatively, short-term noncontrast chest CT could be performed in one month if there is a clinical suspicion for an infectious process. Dictated by: Dictated on workstation # [id number] Dict: 01/24/201915 Trans: 01/24/202217 [facility] [id number] Interpreted by: CAMILLA BARNETT MD Electronically signed by: CAMILLA BARNETT MD 01/24/202217 Departure Impression Primary Impression: Vertigo Additional Impression: Pulmonary nodule Disposition: HOME, SELF-CARE Condition: Improved Departure-Patient Inst. Decision time for Depature: 19:51 Referrals: ISABEL ODONNELL MD (PCP/Family) Primary Care Physician Patient Instructions: Dizziness, Nonvertigo, (DC) Add. Discharge Instructions: Plan: 1. Discharge home. 2. Follow up with Dr. Odonnell on Sunday for further evaluation of the pulmonary nodule and persistent left breast pain. 3. Return to ER for any new, worsening, or concerning symptoms. Copy Copies To 1: ISABEL ODONNELL MD, STORMY D APRN Jan 24, 2020 15:06
[2020-01-24 15:16] LABS: ALBUMIN 4.3 GM/DL (3.2-4.5); POTASSIUM 3.6 MMOL/L (3.6-5.0)
[2020-01-24 15:17] LABS: CALCIUM 8.8 MG/DL (8.5-10.1)
[2020-01-24 15:18] LABS: TOTAL PROTEIN 7.4 GM/DL (6.4-8.2)
[2020-01-24 15:20] LABS: BILIRUBIN,TOTAL 0.8 MG/DL (0.1-1.0)
[2020-01-24 15:22] LABS: CREATININE SERUM 1.44 MG/DL (0.60-1.30)
--- NOTE | 2020-01-24 16:09 | Diagnostic Imaging Report ---
INDICATION: Dizziness. COMPARISON: Prior study from 10/12/2014. FINDINGS: Lungs demonstrate no focal infiltrate or consolidation. There is no effusion. There is no pneumothorax. There is mild enlargement of the cardiac silhouette. The central pulmonary vascularity appears appropriate without evidence of current failure. There is an ill-defined nodular density projecting within the left lung. This does not appear present on the prior examination and a developing pulmonary nodule or mass could not be excluded. There is no acute or suspicious osseous abnormality. IMPRESSION: 1. No radiographic evidence of an acute cardiopulmonary process. 2. Ill-defined nodular density projecting over the left midlung. This is new from prior examination. A pulmonary nodule or developing mass cannot be excluded. Consider follow-up with chest CT. Dictated by: Dictated on workstation # [id number]
[2020-01-24] MEDS ORDERED: NS IV 1000 ML 1,000 ML IV SCH (18:08)
--- NOTE | 2020-01-24 19:25 | Diagnostic Imaging Report ---
PROCEDURE: CT chest without contrast. TECHNIQUE: Multiple contiguous axial images were obtained through the chest without the use of intravenous contrast. Auto Exposure Controls were utilized during the CT exam to meet ALARA standards for radiation dose reduction. INDICATION: Pulmonary nodule on chest radiograph. COMPARISON: Chest radiograph 01/24/2020. FINDINGS: Mixed solid and groundglass pulmonary nodules centrally in the left upper lobe measuring up to 2.1 cm. Smaller pulmonary nodule in the left upper lobe measures up to 0.47 cm anteriorly and 0.4 cm superiorly. The right lung is clear. No pleural effusion or pneumothorax. No mediastinal, hilar or axillary lymphadenopathy. Cardiomegaly. Normal caliber thoracic aorta and central pulmonary arteries. Mild atherosclerotic calcifications in the coronary arteries. The visualized upper abdominal contents are unremarkable. Age-appropriate changes in the visualized spine. No acute osseous finding. IMPRESSION: Mixed solid and groundglass nodule centrally in the left upper lobe measures up to 2.1 cm. There are also a couple additional 0.4 cm indeterminate nodules in the left upper lobe. No lymphadenopathy. Findings are suspicious for a neoplastic process. Recommend nuclear medicine FDG PET/CT versus CT-guided biopsy for further evaluation. Alternatively, short-term noncontrast chest CT could be performed in one month if there is a clinical suspicion for an infectious process. Dictated by: Dictated on workstation # [id number]
[2020-01-24 20:02] LABS: BILIRUBIN,URINE NEGATIVE (NEGATIVE); CLARITY,URINE SL CLOUDY; COLOR,URINE YELLOW; GLUCOSE, URINE (UA) NEGATIVE (NEGATIVE); KETONES,URINE NEGATIVE (NEGATIVE); LEUKOCYTE ESTERASE ,URINE NEGATIVE (NEGATIVE); NITRITE,URINE NEGATIVE (NEGATIVE); PROTEIN,URINE NEGATIVE (NEGATIVE)
[2020-01-24 20:29] LABS: BACTERIA,URINE TRACE /HPF; RBC,URINE 0-2 /HPF; SQUAMOUS EPITHELIAL CELL,UR RARE /HPF; WBC,URINE 0-2 /HPF
[2020-01-24 20:47] VITALS: BP 171/90
== END 2020-01-24 20:48 | disposition home or self-care (01) ==
LOC: EDUNIT# 14:45 → ER 14:45
DX: R42 Dizziness and giddiness (principal); R91.1 Solitary pulmonary nodule; I10 Essential (primary) hypertension; K21.9 Gastro-esophageal reflux disease without esophagitis; Z79.82 Long term (current) use of aspirin
CPT/HCPCS: 36415; 71045; 71250; 80053; 81000; 83735; 83874; 84484; 85025; 85610; 85730; 93005; 93041

== ENCOUNTER → 2020-02-03 | Outpatient (CLI) | payer MEDICARE, OTHER ==
--- NOTE | 2020-02-03 14:59 | Diagnostic Imaging Report ---
INDICATION: Left upper lobe lung mass. Serum blood glucose level at the time of injection is 101 mg/dL. TECHNIQUE: The patient was administered 13.9 mCi F-18 FDG intravenously in the right forearm and PET imaging was performed from the top of the skull to mid thighs. Noncontrast CT was also performed for attenuation correction and anatomic correlation. COMPARISON: No prior PET studies are available for comparison. Comparison is made with recent CT chest performed 01/24/2020. There is symmetric activity throughout the brain. There is hypermetabolism involving an area of mucosal thickening or mucous retention cyst or polyp in the right maxillary sinus. Soft tissues of the neck are unremarkable. The area of groundglass nodularity in the left upper lobe noted on recent CT does not appear to be hypermetabolic. Only minimal low level activity is seen. No mediastinal or hilar hypermetabolism is identified. Abdomen and pelvis demonstrate physiologic activity throughout the GI and tracts. No suspicious hypermetabolism is identified. The prostate does appear to be enlarged. IMPRESSION: 1. Area of groundglass nodularity, left upper lobe, does not demonstrate pathologic hypermetabolism. This could be inflammatory in etiology. A close interval follow-up CT chest in approximately 6 weeks after course of antibiotic therapy would be recommended to confirm stability or clearing. 2. Hypermetabolic focus right maxillary sinus. Dedicated CT of the paranasal sinuses would be useful for further evaluation. Dictated by: Dictated on workstation # [id number]
== END ==
LOC: RAD 09:32
PROVIDERS: ATTEND Family Medicine
DX: R91.1 Solitary pulmonary nodule (principal)
CPT/HCPCS: 78815; A9552

== ENCOUNTER → 2020-03-10 | Outpatient (CLI) | payer MEDICARE, OTHER ==
[~2020-03-10] MED LIST changes: +CATHETER FLUSH 10 ML SYR IV PRN; +HOLD METFORMIN - RECEIVED CONTRAST 20 ML VIAL IV SCH; +IOHEXOL 350 MG/ML 100 ML (OMNIPAQUE 350) VIAL IV ONE; +NS 100 ML (IVPB) BAG IV ONE
[2020-03-10 10:44] LABS: ALBUMIN 3.9 GM/DL (3.2-4.5); BILIRUBIN,TOTAL 0.9 MG/DL (0.1-1.0); CALCIUM 8.4 MG/DL (8.5-10.1); CREATININE SERUM 1.46 MG/DL (0.60-1.30); POTASSIUM 3.9 MMOL/L (3.6-5.0); TOTAL PROTEIN 6.9 GM/DL (6.4-8.2)
--- NOTE | 2020-03-10 13:59 | Diagnostic Imaging Report ---
PROCEDURE: CT chest, abdomen, and pelvis with contrast. TECHNIQUE: Multiple contiguous axial images were obtained through the chest, abdomen, and pelvis after the administration of intravenous contrast. Auto Exposure Controls were utilized during the CT exam to meet ALARA standards for radiation dose reduction. INDICATION: Lung nodule, follow-up. Patient also has lower pelvic pain. Comparison is made with prior CT chest study from 01/24/[address] abdomen and pelvis study from 05/31/2019. CT CHEST: No axillary lymphadenopathy is detected. No mediastinal or hilar lymphadenopathy is detected. No pericardial or pleural fluid is detected. A 3-4 mm nodule in the lateral aspect left upper lobe appears stable. The area of slightly nodular groundglass density in the left upper lobe appears to be fairly stable at approximately 2.0 x 1.4 cm compared with 2.1 x 1.5 cm. A 4 mm nodule more inferiorly and anteriorly in the left upper lobe appears stable. No new pulmonary nodule is detected. IMPRESSION: Overall stable CT chest when compared with exam from 01/24/2020. Left upper lobe pulmonary opacities are stable. Continued close interval CT chest follow-up is recommended to ensure continued stability. CT ABDOMEN AND PELVIS: No discrete liver mass is identified. Gallbladder is unremarkable. No biliary ductal dilatation is seen. Pancreas and spleen are unremarkable. No adrenal mass is detected. Kidneys are unremarkable. Aorta is non-aneurysmal. No central, retroperitoneal or mesenteric lymphadenopathy is identified. The small and large bowel loops are normal caliber. There is no obstruction. There is no free fluid or fluid collection. Partially filled urinary bladder is unremarkable. The prostate is markedly enlarged. No definite pelvic lymphadenopathy is identified. IMPRESSION: 1. No acute feature in the abdomen or pelvis is identified. 2. Marked prostatomegaly. Dictated by: Dictated on workstation # [id number]
== END ==
LOC: RAD 10:45
PROVIDERS: ATTEND Nurse Practitioner Family
DX: N45.1 Epididymitis (principal); R91.1 Solitary pulmonary nodule
CPT/HCPCS: 36415; 71260; 74177; 80053

== ENCOUNTER → 2020-10-20 | Outpatient (CLI) | payer MEDICARE ==
[~2020-10-20] MED LIST changes: -SULF1TAB35 PO; +SULF1TAB38 PO
[2020-10-20 09:23] LABS: CREATININE SERUM 1.47 MG/DL (0.60-1.30)
--- NOTE | 2020-10-20 10:03 | Diagnostic Imaging Report ---
PROCEDURE: CT chest with contrast only. TECHNIQUE: Multiple contiguous axial images were obtained through the chest after administration of intravenous contrast. Auto Exposure Controls were utilized during the CT exam to meet ALARA standards for radiation dose reduction. INDICATION: Pulmonary nodules. Exam compared with chest CT study 03/10/2020, also interpreted in correlation with metabolic PET CT performed 02/03/2020 FINDINGS: Ground glass nodule left upper lobe is increased in size today measures 2.4 x 1.8 cm on the most recent chest CT of March 2020 it measured 2.0 x 1.4 cm. On the referenced metabolic PET CT of February 2020 this showed no detectable hypermetabolism. However given its persistence and progressive size a low-grade neoplasm including etiology such as bronchoalveolar cell carcinoma should be considered. Lesional biopsy recommended despite its lack of hypermetabolism. Infectious disease would be very doubtful given this time course. No new lung mass and no soft tissue density, pulmonary nodule. No thoracic lymphadenopathy. No effusion or pneumothorax. Upper limits heart size stable. There is a tiny hiatal hernia chronic. The upper abdomen shows intact adrenal glands with a non-focal and nonacute incompletely visualized liver. IMPRESSION: A groundglass nodule left upper lobe shows increased size and given previous negative metabolic PET low-grade neoplasm cannot be excluded. Consider a CT guided biopsy. No lymphadenopathy, suspicious bone lesion or other interval changes. Dictated by: Dictated on workstation # [id number]
== END ==
LOC: RAD 09:45
PROVIDERS: ATTEND Family Medicine
DX: R91.1 Solitary pulmonary nodule (principal)
CPT/HCPCS: 36415; 71260; 82565; 84520

== ENCOUNTER → 2022-11-09 | Outpatient (CLI) | payer MEDICARE, OTHER ==
[2022-11-09] VITALS (11 sets, daily range): BP systolic 116–145; BP diastolic 63–81
[~2022-11-09] MED LIST changes: +ATOR40TA70 PO; -CATHETER FLUSH 10 ML SYR IV PRN; +CITA20TA9 PO; -HOLD METFORMIN - RECEIVED CONTRAST 20 ML VIAL IV SCH; +HYDROcodone/ACETAMINOPHEN 5 MG/325 MG TABLET PO PRN; -IOHEXOL 350 MG/ML 100 ML (OMNIPAQUE 350) VIAL IV ONE; +LIDOCAINE 1% INJ 10 ML VIAL INJ ONE; +LOSA25TA41 PO; +MIDAZOLAM 2 MG/2 ML (VERSED) VIAL IVP ONE; +MTP25TSR PO; -NS 100 ML (IVPB) BAG IV ONE; +NS IV 1000 ML 1,000 ML IV STA; +OMEP40CA6 PO; +TERA10CA3 PO; +fentaNYL INJECTION 100 MCG/2 ML VIAL IVP ONE
[2022-11-09 09:46] LABS: HEMOGLOBIN 13.1 g/dL (13.3-17.7); MEAN PLATELET VOLUME 10.3 fL (9.0-12.2); WHITE BLOOD COUNT 5.2 10^3/uL (4.3-11.0)
[2022-11-09 09:56] LABS: PROTHROMBIN TIME PATIENT 13.8 SEC (12.2-14.7)
--- NOTE | 2022-11-09 13:16 | Diagnostic Imaging Report ---
INDICATION: Left lung density. PROCEDURE: The patient presents for CT-guided biopsy. TECHNIQUE: All CT scans use one or more of the following dose optimizing techniques: automated exposure control, MA and/or KvP adjustment based on patient size and exam type or iterative reconstruction. Patient was brought to the CT suite, placed on the table in the supine position. Axial imaging through the chest was performed to evaluate appropriate entry site. Left anterolateral chest was prepped and draped in the usual sterile fashion. A small amount of 1% lidocaine was utilized for local anesthesia. The procedure was performed utilizing conscious sedation with radiology nursing and constant patient monitoring. The patient was given a total of 1 mg of Versed intravenously and 50 mcg of fentanyl intravenously. Total procedure time approximately 16 minutes. An 18-gauge coaxial needle was advanced from an anterolateral approach and placed with its tip along the margin of the opacity in the left upper lobe. Three core biopsies were obtained. Blood patch was injected during needle removal. Follow-up imaging demonstrates trace left pneumothorax. No complicating features are seen. IMPRESSION: CT-guided left upper lobe lung opacity biopsy utilizing conscious sedation. Pathology results are currently pending. Dictated by: Dictated on workstation # [id number]
--- NOTE | 2022-11-09 15:40 | Pre-Op Note & Conscious Sedat ---
Pre-Operative Progress Note Date of Available H&P: Nov 09, 2022 Date H&P Reviewed: Nov 09, 2022 Time H&P Reviewed: 09:00 Pre-Op Diagnosis: lung mass Moderate Sedation PreProcedure Time 09:00 ASA Score 2 Airway Lungs Heart ASA score ASA 1: a normal healthy patient ASA 2: a patient with a mild systemic disease (mid diabetes, controlled hypertension, obesity ASA 3: a patient with a severe systemic disease that limits activity (angina, COPD, prior Myocardial infarction) ASA 4: a patient with an incapacitating disease that is a constant threat to life (CHF, renal failure) ASA 5: a moribund patient not expected to survive 24 hrs. (ruptured aneurysm) ASA 6: a declared brain- patient whose organs are being harvested. For emergent operations, add the letter E after the classification Mallampati Classification Grade 2 Sedation Plan Analgesia, Amnesia, Plan communicated to team members, Discussed options with patient/fam, Discussed risks with patient/fam The patient is an appropriate candidate to undergo the planned procedure, sedation, and anesthesia. The patient immediately re-assessed prior to indication. LUIS EDUARDO ANGELES MD Nov 09, 2022 15:40
--- NOTE | 2022-11-09 16:00 | Diagnostic Imaging Report ---
INDICATION: Left lung biopsy. TIME OF EXAM: 1:20 PM. FINDINGS: Portable view of the chest does show some density in the left upper lobe, consistent with perilesional hemorrhage. There is no pneumothorax status post biopsy. The heart is enlarged. There is no effusion. IMPRESSION: No evidence of pneumothorax, status post left lung biopsy. Dictated by: Dictated on workstation # [id number]
== END ==
LOC: SDC 09:10
PROVIDERS: ATTEND Thoracic Surgery (Cardiothoracic Vascular Surgery)
DX: R91.1 Solitary pulmonary nodule (principal); Z98.890 Other specified postprocedural states
CPT/HCPCS: 36415; 71045; 77012; 85027; 85610; 85730

== ENCOUNTER 2022-12-11 13:12 | Emergency (ER) | payer MEDICARE, OTHER ==
[~2022-12-11] VITALS: Ht 165 cm; Wt 99.0 kg
[~2022-12-11 13:12] MED LIST changes: -HYDROcodone/ACETAMINOPHEN 5 MG/325 MG TABLET PO PRN; -LIDOCAINE 1% INJ 10 ML VIAL INJ ONE; -MIDAZOLAM 2 MG/2 ML (VERSED) VIAL IVP ONE; -NS IV 1000 ML 1,000 ML IV STA; -fentaNYL INJECTION 100 MCG/2 ML VIAL IVP ONE
--- NOTE | 2022-12-11 13:38 | ED General ---
General Chief Complaint: General Problems/Pain Stated Complaint: OPEN INCISION FROM OPERATION ON 11/29/22 Nursing Triage Note: PT AMB TO [facility] 8 PT HAS HAD THORACOTOMY OF L LUNG ON 11/29/22. PT HAS DRAIN WOUND THAT IS OOZING ALOT OF SEROUS FLUID. PT TOLD BY HER DR OFFICE TO GO TO ED. PT DENIES FEVERS OR INCREASED PAIN. NO REDNESS PAIN OR ODOR FROM DRIANAGE NOTED. Source of Information: Patient, Family Exam Limitations: No Limitations History of Present Illness Date Seen by Provider: Dec 11, 2022 Time Seen by Provider: 13:15 Initial Comments 82-year-old male with recent diagnosis of lung cancer that had a partial pneumonectomy with thoracotomy on the left lung November 29 at [facility] by Dr. Noyola . Everything has been going well, they noticed one of the incisions on the left side opened up this weekend and started oozing a lot of clear fluid. They contacted the office and they were told to go to the ER. Denies any fever, increasing pain, redness, or odor from the wound. Otherwise denying any other acute complaints. Allergies and Home Medications Allergies Coded Allergies: oxymetazoline (Verified Adverse Reaction, Intermediate, HYPOTENSION, 11/09/22) Patient Home Medication List Home Medication List Reviewed: Yes Atorvastatin Calcium (Atorvastatin Calcium) 40 Mg Tablet, 40 MG PO HS, (Reported) Entered as Reported by: JOHN HOWARD on 11/09/22 0935 Citalopram Hydrobromide (Citalopram HBr) 20 Mg Tablet, 20 MG PO DAILY, (Reported) Entered as Reported by: JOHN HOWARD on 11/09/22 0935 Dutasteride (Avodart) 0.5 Mg Capsule, 0.5 MG PO DAILY, (Reported) Entered as Reported by: DEBO INFANTE on 10/12/14 1328 Losartan Potassium (Losartan Potassium) 25 Mg Tablet, 25 MG PO HS, (Reported) Entered as Reported by: JOHN HOWARD on 11/09/22 0935 Metoprolol Succinate (Metoprolol Succinate) 25 Mg Tab.er.24h, 12.5 MG PO DAILY, (Reported) Entered as Reported by: JOHN HOWARD on 11/09/22 0935 Omeprazole (Omeprazole) 40 Mg Capsule.dr, 40 MG PO DAILY, (Reported) Entered as Reported by: JOHN HOWARD on 11/09/22934 Terazosin HCl (Terazosin HCl) 10 Mg Capsule, 10 MG PO HS, (Reported) Entered as Reported by: JOHN HOWARD on 11/09/22934 Review of Systems Review of Systems Constitutional: No fever EENTM: no symptoms reported Respiratory: no symptoms reported Cardiovascular: see HPI Gastrointestinal: no symptoms reported Genitourinary: no symptoms reported Musculoskeletal: no symptoms reported Skin: see HPI Psychiatric/Neurological: No Symptoms Reported Past Weiejqt-Beyrrf-Jraomz Hx Patient Social History Tobacco Use?: No Substance use?: No Alcohol Use?: No Pt feels they are or have been: No Immunizations Up To Date Tetanus Booster (TDap): Unknown First/Initial COVID19 Vaccinat: YES Second COVID19 Vaccination Sreekanth: YES Seasonal Allergies Seasonal Allergies: No Past Medical History Surgery/Hospitalization HX: LUNG SURGERY, PROSTATES Surgeries: Yes Appendectomy, Prostatectomy Respiratory: Yes Sleep Apnea Cardiac: Yes Hypertension Neurological: Yes Headaches /Migraines Genitourinary: Yes (URINARY RETENTION) Prostate Problems Gastrointestinal: Yes Gastroesophageal Reflux Musculoskeletal: No Endocrine: No HEENT: No Cancer: No Psychosocial: No Integumentary: No Blood Disorders: No Family Medical History No Pertinent Family Hx Physical Exam Vital Signs Vital Signs - First Documented 12/11/22 13:20 Temp 36.7 Pulse 82 Resp 18 B/P (MAP) 148/84 (105) Pulse Ox 95 Capillary Refill : Less Than 3 Seconds Height, Weight, BMI Height: 5'6.00" Weight: 210lbs. oz. 95.544198mr; 36.00 BMI Method:Stated General Appearance: No Apparent Distress, WD/WN Eyes: Bilateral Eye Normal Inspection HEENT: PERRL/EOMI, Normal ENT Inspection, Pharynx Normal Neck: Full Range of Motion, Normal Inspection, Non Tender, Supple Respiratory: Chest Non Tender, Lungs Clear, Normal Breath Sounds, No Accessory Muscle Use, No Respiratory Distress Cardiovascular: Regular Rate, Rhythm, Normal Peripheral Pulses Neurologic/Psychiatric: Alert, Oriented x3, No Motor/Sensory Deficits, Normal Mood/Affect Skin: Normal Color, Warm/Dry, Other (Left chest wall incision that is roughly 3 cm draining serous fluid, it does not open up fully and is partially closed) Progress/Results/Core Measures Suspected Sepsis SIRS Temperature: Pulse: 82 Respiratory Rate: 18 Laboratory Tests 12/11/22 14:27: White Blood Count 5.6 Blood Pressure 148 /84 Mean: 105 Laboratory Tests 12/11/22 14:27: Creatinine 1.19, Platelet Count 199, Total Bilirubin 0.6 Results/Orders Lab Results Laboratory Tests Test 12/11/22 14:27 Range/Units White Blood Count 5.6 4.3-11.0 10^3/uL Red Blood Count 4.00 L 4.30-5.52 10^6/uL Hemoglobin 12.2 L 13.3-17.7 g/dL Hematocrit 36 L 40-54 % Mean Corpuscular Volume 91 80-99 fL Mean Corpuscular Hemoglobin 31 25-34 pg Mean Corpuscular Hemoglobin Concent 34 32-36 g/dL Red Cell Distribution Width 12.7 10.0-14.5 % Platelet Count 199 130-400 10^3/uL Mean Platelet Volume 9.1 9.0-12.2 fL Immature Granulocyte % (Auto) 0 % Neutrophils (%) (Auto) 68 42-75 % Lymphocytes (%) (Auto) 18 12-44 % Monocytes (%) (Auto) 9 0-12 % Eosinophils (%) (Auto) 4 0-10 % Basophils (%) (Auto) 1 0-10 % Neutrophils # (Auto) 3.8 1.8-7.8 10^3/uL Lymphocytes # (Auto) 1.0 1.0-4.0 10^3/uL Monocytes # (Auto) 0.5 0.0-1.0 10^3/uL Eosinophils # (Auto) 0.2 0.0-0.3 10^3/uL Basophils # (Auto) 0.0 0.0-0.1 10^3/uL Immature Granulocyte # (Auto) 0.0 0.0-0.1 10^3/uL Sodium Level 137 135-145 MMOL/L Potassium Level 4.1 3.6-5.0 MMOL/L Chloride Level 105 98-107 MMOL/L Carbon Dioxide Level 24 21-32 MMOL/L Anion Gap 8 5-14 MMOL/L Blood Urea Nitrogen 18 7-18 MG/DL Creatinine 1.19 0.60-1.30 MG/DL Estimat Glomerular Filtration Rate 61 BUN/Creatinine Ratio 15 Glucose Level 128 H 70-105 MG/DL Calcium Level 8.6 8.5-10.1 MG/DL Corrected Calcium 9.2 8.5-10.1 MG/DL Total Bilirubin 0.6 0.1-1.0 MG/DL Aspartate Amino Transf (AST/SGOT) 17 5-34 U/L Alanine Aminotransferase (ALT/SGPT) 26 0-55 U/L Alkaline Phosphatase 48 40-136 U/L C-Reactive Protein High Sensitivity 2.49 H 0.00-0.50 MG/DL Total Protein 6.1 L 6.4-8.2 GM/DL Albumin 3.3 3.2-4.5 GM/DL My Orders Orders - MAGGY CRESPO MD Chest 1 View, Ap/Pa Only (12/11/22 13:34) Cbc With Automated Diff (12/11/22 13:34) Comprehensive Metabolic Panel (12/11/22 13:34) Hs C Reactive Protein (12/11/22 13:34) Ed Iv/Invasive Line Start (12/11/22 13:34) Ct Chest Wo (12/11/22 14:23) Cefdinir Capsule (Cefdinir Capsule) (12/11/22 15:15) Vital Signs/I&O 12/11/22 13:20 Temp 36.7 Pulse 82 Resp 18 B/P (MAP) 148/84 (105) Pulse Ox 95 Capillary Refill : Less Than 3 Seconds Blood Pressure Mean: 105 Progress Note : Progress Note 82-year-old male with above history coming in due to his surgical wound opening with drainage. ABCs were intact and vitals were stable on presentation. Had mostly serous drainage when I was looking at it, it is not completely open, and there is no clinical signs of cellulitis or abscess. Basic labs were obtained a nd were significant for normal white blood cell count, slightly elevated CRP which is nonspecific, normal creatinine. Chest x-ray with potential infection and small pleural effusion. CT chest showing essentially the same. There is no subcutaneous fluid collection or anything that would need to be obviously drained. I contacted his cardiothoracic surgeon at [facility], he would like the patient to go home and follow-up with him in the clinic first thing in the morning. Patient is well-appearing and I believe stable for discharge. Given the concerns for potential infection on CT and his lungs which is mild, we will start him on an antibiotic here with a prescription. He was then discharged home in stable condition with strict return precautions Diagnostic Imaging Diagonstic Imaging: Xray (chest) Comments [facility]. [place], [place] NAME: ELOY HURD REC#: [id number] PT STATUS: REG ER : 1940 PHYSICIAN: MAGGY CRESPO MD ADMIT DATE: 12/11/22/ER Draft Date of Exam:12/11/22 CHEST 1 VIEW, AP/PA ONLY INDICATION: Post partial left pneumonectomy with dehiscence of the wound and draining fluid. COMPARISON: Exam is compared with radiograph 11/09/2022. FINDINGS: There is a left basilar consolidation obscuring from visualization of the left hemidiaphragm as well as some nonspecific left perihilar pulmonary opacity. There is no pneumothorax. The right lung is clear. There may be a small amount of left-sided pleural fluid. This is equivocal. IMPRESSION: 1. Likely atelectasis at the left base, perihilar infiltrate, and equivocal findings for a small-volume left pleural fluid. 2. No pneumothorax or visible acute bony pathology. Dictated on workstation # [id number] Dict: 12/11/22 1418 Trans: 12/11/22 1422 [id number] Interpreted by: SONIA NOONAN Electronically signed by: Departure Impression Primary Impression: Visit for wound check Additional Impression: Ground glass opacity present on imaging of lung Disposition: 01 HOME, SELF-CARE Condition: Stable Departure-Patient Inst. Decision time for Depature: 15:30 Referrals: MAURICE LOPEZ DO (PCP/Family) Primary Care Physician Patient Instructions: Pleural Effusion (DC) Add. Discharge Instructions: He does have a little fluid on his lungs which would be expected after surgery. There is also potentially a small developing infection on his left lung which she will be on antibiotics for. Follow-up with his surgeon tomorrow. Please call their clinic today to see what time they want you to come in. There may be some continued clear drainage tonight and if so that is okay. Come back to the ER if you notice bloody drainage. Scripts Cefdinir (Cefdinir) 300 Mg Capsule 300 MG PO BID for 7 Days, #14 CAP 0 Refills Prov: MAGGY CRESPO MD 12/11/22 MAGGY CRESPO MD Dec 11, 2022 13:38
--- NOTE | 2022-12-11 14:23 | Diagnostic Imaging Report ---
INDICATION: Post partial left pneumonectomy with dehiscence of the wound and draining fluid. COMPARISON: Exam is compared with radiograph 11/09/2022. FINDINGS: There is a left basilar consolidation obscuring from visualization of the left hemidiaphragm as well as some nonspecific left perihilar pulmonary opacity. There is no pneumothorax. The right lung is clear. There may be a small amount of left-sided pleural fluid. This is equivocal. IMPRESSION: 1. Likely atelectasis at the left base, perihilar infiltrate, and equivocal findings for a small-volume left pleural fluid. 2. No pneumothorax or visible acute bony pathology. Dictated by: Dictated on workstation # [id number]
[2022-12-11 14:33] LABS: BASOPHILS % (AUTO) 1 % (0-10); EOSINOPHILS # (AUTO) 0.2 10^3/uL (0.0-0.3); EOSINOPHILS % (AUTO) 4 % (0-10); HEMATOCRIT 36 % (40-54); HEMOGLOBIN 12.2 g/dL (13.3-17.7); LYMPHOCYTES % (AUTO) 18 % (12-44); MEAN CORPUSCULAR HEMOGLOBIN 31 pg (25-34); MEAN CORPUSCULAR HGB CONC 34 g/dL (32-36); MEAN CORPUSCULAR VOLUME 91 fL (80-99); MEAN PLATELET VOLUME 9.1 fL (9.0-12.2); MONOCYTES # (AUTO) 0.5 10^3/uL (0.0-1.0); MONOCYTES % (AUTO) 9 % (0-12); NEUTROPHILS # (AUTO) 3.8 10^3/uL (1.8-7.8); NEUTROPHILS % (AUTO) 68 % (42-75); PLATELET COUNT 199 10^3/uL (130-400); WHITE BLOOD COUNT 5.6 10^3/uL (4.3-11.0)
[2022-12-11 14:54] LABS: ALBUMIN 3.3 GM/DL (3.2-4.5); BILIRUBIN,TOTAL 0.6 MG/DL (0.1-1.0); CALCIUM 8.6 MG/DL (8.5-10.1); CREATININE SERUM 1.19 MG/DL (0.60-1.30); POTASSIUM 4.1 MMOL/L (3.6-5.0); TOTAL PROTEIN 6.1 GM/DL (6.4-8.2)
--- NOTE | 2022-12-11 15:04 | Diagnostic Imaging Report ---
PROCEDURE: CT chest without contrast. TECHNIQUE: Multiple contiguous axial images were obtained through the chest without the use of intravenous contrast. Auto Exposure Controls were utilized during the CT exam to meet ALARA standards for radiation dose reduction. INDICATION: Partial pneumonectomy, left-sided wound dehiscence, fluid draining. COMPARISON: Exam is compared with CT chest dated 10/20/2020. FINDINGS: There is a fmuso-[id number] volume of left-sided pleural fluid. Its density appears relatively homogeneous and layers to a maximal depth of 3 cm. There is likely a small fluid locule in the mediastinum at the aorticopulmonary window with adjacent surgical clips. This measures 2.5 cm. There is no pneumothorax. There are multifocal ground-glass nodules in the residual upper left lung, which may be infectious or neoplastic and warrant follow-up. There is a trace amount of subcutaneous gas about the left chest wall. There is no pneumothorax, however. No chest wall fluid collection. No thoracic lymphadenopathy. The visible upper abdomen is nonacute. IMPRESSION: Moderate left pleural fluid, nonloculated. There likely is a small mediastinal locule at the AP window of uncertain etiology. Patchy multifocal ground-glass opacities in the left lung favor to be a nonspecific infectious disease, but follow-up warranted. No adenopathy. Trace subcutaneous gas. No pneumothorax. No chest wall fluid collection. Dictated by: Dictated on workstation # [id number]
[2022-12-11] MEDS ORDERED: CEFD300C3 PO (15:14)
[2022-12-11] MEDS ORDERED: CEFDINIR 300 MG CAPSULE PO ONE (15:15)
[2022-12-11 15:27] VITALS: BP 135/70
== END 2022-12-11 15:28 | disposition home or self-care (01) ==
LOC: EDUNIT# 13:12 → ER 13:14
DX: Z48.01 Encounter for change or removal of surgical wound dressing (principal); R91.8 Other nonspecific abnormal finding of lung field; Z85.118 Personal history of other malignant neoplasm of bronchus and lung
CPT/HCPCS: 36415; 71045; 71250; 80053; 85025; 86141; 99283